=== PATIENT | male | born 1950 | race Caucasian/White ===

== ENCOUNTER 2018-06-02 05:25 | Emergency (ER) | payer BC, OTHER ==
[2018-06-02] MEDS ORDERED: Zithromax 500 MG/ 250 ML NaCl Premix 500 MG/250 ML IVPB IV STA (05:52)
[2018-06-02] MEDS ORDERED: Sodium Chloride 0.9% 1000 ML 1,000 ML IV STA (05:52)
[2018-06-02] MEDS ORDERED: DUONEB 0.5-3 MG/3 ml Neb IH ONE ×3 (05:52→06:56)
[2018-06-02] MEDS ORDERED: solu-MEDROL 125 MG IV ONE (05:52)
[2018-06-02] MEDS ORDERED: ROCEPHIN 1 Gm-D5w 50 ml Bag** 1 G/50 ML IVPB IV STA (05:52)
--- NOTE | 2018-06-02 06:01 | ERPHSYRPT ---
- History of Present Illness Source: patient Exam Limitations: no limitations Patient Subjective Stated Complaint: pt states he has had cough and chest congestion for 2 days. had a episode this morning where he felt short of breath and used albuterol inhaler. sttes much improved after approx 10 m in Triage Nursing Assessment: pt alert and oreinted, asnwers questions approp. pt ambulatory with steady gait noted, skin pink warm and dry. respiraitons nonlabored, insp and exp wheezes noted bilat. occasional moist cough noted. Timing/Duration: day(s) Cough Quality/Degree: moderate, productive cough Possible Cause: occasional episodes Modifying Factors: Improves With: albuterol inhaler Associated Symptoms: cough, shortness of breath, wheezing Hx Tetanus, Diphtheria Vaccination/Date Given: No Hx Influenza Vaccination/Date Given: No Hx Pneumococcal Vaccination/Date Given: No Immunizations Up to Date: No <DINA ZAMORA - Last Filed: 06/02/18 06:56> <ARCHANA REILLY - Last Filed: 06/02/18 07:57> - History of Present Illness Physician History: Pt is a 67 y/o male with a h/o smoking 1ppd. He is treating his chronic SOB with Albuterol MDI only. He began to be SOB on Saturday, and today he was so SOB , that his Albuterol did not solve his wheeze, and pt decided to come to the ED. Pt is very SOB and wheezy, but denies fever and chills. He is coughing with deep breathing. No N/V/D. No abdominal pain. No chest pain or palpitations. (DINA ZAMORA) Allergies/Adverse Reactions: Penicillins Allergy (Verified 06/02/18 05:50) Home Medications: Aspirin 81 mg PO UD 10/16/15 [History] Metoprolol Tartrate 25 mg PO UD 10/16/15 [History] - Review of Systems Constitutional: No Fever, No Chills Eyes: No Symptoms Ears, Nose, & Throat: No Symptoms Respiratory: Cough, Dyspnea, Dyspnea on Exertion (STEVEN), Wheezing Cardiac: No Chest Pain, No Edema, No Syncope Abdominal/Gastrointestinal: No Abdominal Pain, No Nausea, No Vomiting, No Diarrhea Genitourinary Symptoms: No Dysuria Musculoskeletal: No Back Pain, No Neck Pain Skin: No Rash Neurological: No Dizziness, No Focal Weakness, No Sensory Changes <NIKOLAIDINA - Last Filed: 06/02/18 06:56> - Past Medical History Pertinent Past Medical History: Yes Cardiac History: Other Other Medical History: varicose veins, palpitations at times - Past Surgical History Past Surgical History: Yes Neuro Surgical History: No Pertinent History Cardiac: No Pertinent History Respiratory: No Pertinent History Gastrointestinal: Appendectomy, Cholecystectomy Genitourinary: No Pertinent History Musculoskeletal: No Pertinent History Male Surgical History: No Pertinent History - Social History Smoking Status: Current every day smoker How long have you smoked: 45 yrs Exposure to second hand smoke: No Drug Use: none Patient Lives Alone: No <NIKOLAIDINA - Last Filed: 06/02/18 06:56> - Physical Exam General Appearance: mild distress Eye Exam: PERRL/EOMI, eyes nml inspection Ears, Nose, Throat Exam: normal ENT inspection, TMs normal, pharynx normal, moist mucous membranes Neck Exam: normal inspection, non-tender, supple, full range of motion Respiratory Exam: accessory muscle use, prolonged expirations, wheezing Cardiovascular Exam: regular rate/rhythm, normal heart sounds Gastrointestinal/Abdomen Exam: soft, No tenderness Back Exam: normal inspection, No CVA tenderness, No vertebral tenderness Extremity Exam: normal inspection, normal range of motion Neurologic Exam: alert, oriented x 3, cooperative, normal mood/affect, sensation nml, No motor deficits SpO2: 95 <NIKOLAIDINA - Last Filed: 06/02/18 06:56> - Nursing Vital Signs Nursing Vital Signs: Initial Vital Signs Temperature 98.7 F 06/02/18 05:36 Pulse Rate 90 06/02/18 05:36 Respiratory Rate 18 06/02/18 05:36 O2 Sat by Pulse Oximetry 94 L 06/02/18 05:36 Pain Scale Pain Intensity 0 - Course Nursing assessment & vital signs reviewed: Yes <DINA ZAMORA - Last Filed: 06/02/18 06:56> - Course EKG Interpreted by Me: RATE (88 bpm), Sinus Rhythm, Left [place] Deviation, Other ( EKG: Sinus rhythm, 88 bpm, left axis deviation, no acute ST or T wave changes noted.) <ARCHANA REILLY - Last Filed: 06/02/18 07:57> Ordered Tests: Active Orders 24 hr Category Date Time Status 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 06/02/18 05:54 Active EKG-ER Only STAT Care 06/02/18 07:46 Active CHEST 2 VIEWS (PA AND LAT) Stat Exams 06/02/18 06:12 Taken CBC W DIFF Stat Lab 06/02/18 05:52 Completed CMP Stat Lab 06/02/18 05:52 Completed Peak Expiratory Flow Rate ONCE RT 06/02/18 06:31 Active Respiratory Nebulizer STAT RT 06/02/18 05:55 Completed Respiratory Nebulizer STAT RT 06/02/18 06:56 Completed Respiratory Therapy Assessment DAILY RT 06/02/18 06:31 Active Medication Summary Discontinued Medications Generic Name Dose Route Start Last Admin Trade Name Freq PRN Reason Stop Dose Admin Albuterol Sulfate Confirm 06/02/18 07:04 Proventil 2.5 Mg/3 Ml Neb Administered 06/02/18 07:05 Dose 2.5 mg IH .STK-MED ONE Albuterol Sulfate 2.5 mg 06/02/18 07:28 06/02/18 07:15 Proventil 2.5 Mg/3 Ml Neb IH 06/02/18 07:29 2.5 mg STAT ONE Administration Albuterol/Ipratropium 3 ml 06/02/18 05:52 06/02/18 06:27 Duoneb 0.5-3 Mg/3 Ml Neb IH 06/02/18 05:53 3 ml STAT ONE Administration Albuterol/Ipratropium Confirm 06/02/18 06:26 Duoneb 0.5-3 Mg/3 Ml Neb Administered 06/02/18 06:27 Dose 3 ml IH .STK-MED ONE Albuterol/Ipratropium 3 ml 06/02/18 06:56 06/02/18 07:29 Duoneb 0.5-3 Mg/3 Ml Neb IH 06/02/18 06:57 Not Given STAT ONE Ceftriaxone Sodium/Dextrose 1 g in 50 mls @ 100 mls/hr 06/02/18 05:52 06:43 Rocephin 1 Gm-D5w 50 Ml Bag IV 06/02/18 06:21 Infused STAT STA Infusion Sodium Chloride 1,000 mls @ 999 mls/hr 06/02/18 05:52 06/02/18 07:23 Sodium Chloride 0.9% 1000 Ml IV 06/02/18 06:52 Infused .Q1H1M STA Infusion Azithromycin 500 mg in 250 mls @ 250 mls/hr 06/02/18 05:52 06/02/18 06:52 Zithromax 500 Mg/ 250 Ml Nacl Premix IV 06/02/18 06:51 250 ml/hr STAT STA 250 mls/hr Administration Sodium Chloride Confirm 06/02/18 06:08 Sodium Chloride 0.9% 1000 Ml Administered 06/02/18 06:09 Dose 1,000 mls @ ud .ROUTE .STK-MED ONE Ceftriaxone Sodium/Dextrose Confirm 06/02/18 06:09 Rocephin 1 Gm-D5w 50 Ml Bag Administered 06/02/18 06:10 Dose 1 g in 50 mls @ ud IV .STK-MED ONE Azithromycin Confirm 06/02/18 06:49 Zithromax 500 Mg/ 250 Ml Nacl Premix Administered 06/02/18 06:50 Dose 500 mg in 250 mls @ ud IV .STK-MED ONE Methylprednisolone Sodium Succinate 125 mg 06/02/18 05:52 06/02/18 06:14 Solu-Medrol 125 Mg IV 06/02/18 05:53 125 mg STAT ONE Administration Methylprednisolone Sodium Succinate Confirm 06/02/18 06:08 Solu-Medrol 125 Mg Administered 06/02/18 06:09 Dose 125 mg .ROUTE .STK-MED ONE Lab/Rad Data: Laboratory Result Diagrams 06/02/18 05:52 06/02/18 05:52 Laboratory Results 06/02/18 06/02/18 Range/Units 05:52 05:52 WBC 6.3 (4.0-10.5) K/mm3 RBC 5.08 (4.1-5.6) M/mm3 Hgb 15.9 (12.5-18.0) gm/dl Hct 46.9 (42-50) % MCV 92.3 (78-100) fl MCH 31.3 (26-32) pg MCHC 33.9 (32-36) g/dl RDW 13.2 (11.5-14.0) % Plt Count 129 L (150-450) K/mm3 MPV 8.8 (6-9.5) fl Gran % 56.1 (36.0-66.0) % Eos # (Auto) 0.35 (0-0.5) Absolute Lymphs (auto) 1.84 (1.0-4.6) Absolute Monos (auto) 0.55 (0.0-1.3) Lymphocytes % 29.3 (24.0-44.0) % Monocytes % 8.7 (0.0-12.0) % Eosinophils % 5.6 H (0.00-5.0) % Basophils % 0.3 (0.0-0.4) % Absolute Granulocytes 3.53 (1.4-6.9) Basophils # 0.02 (0-0.4) Sodium 138 (137-145) mmol/L Potassium 3.9 (3.5-5.1) mmol/L Chloride 103 (98-107) mmol/L Carbon Dioxide 27 (22-30) mmol/L Anion Gap 11.7 (5-15) MEQ/L BUN 14 (9-20) mg/dL Creatinine 1.07 (0.66-1.25) mg/dL Estimated GFR > 60.0 ML/MIN Glucose 92 (74-106) mg/dL Calcium 9.2 (8.4-10.2) mg/dL Total Bilirubin 0.70 (0.2-1.3) mg/dL AST 16 L (17-59) U/L ALT 12 (0-50) U/L Alkaline Phosphatase 59 (38-126) U/L Serum Total Protein 7.1 (6.3-8.2) g/dL Albumin 3.8 (3.5-5.0) g/dL <DINA ZAMORA - Last Filed: 06/02/18 06:56> - Progress Progress: improved <ARCHANA REILLY - Last Filed: 06/02/18 07:57> - Progress Progress Note: 06/02/18 06:56 Pt was treated with Duo neb, Azithromycin and Rocephin. Solu Medrol 125mg IV was given. Pt did feel improved, but he is still wheezy. Another Duo neb was ordered. Pt is transferred to care of Dr Reilly. (DINA ZAMORA) 06/02/18 07:47 This is a 67-year-old white male initially seen by Dr. Zamora with complaint of chest congestion cough symptoms for 3 days he states he has a history of chronic shortness of breath he has been using an albuterol inhaler he presented to the emergency room with complaints of feeling short of breath and wheezy he denies any fever chills denies any chest pain. He was given DuoNeb treatment albuterol treatment given Solu-Medrol and given Zithromax by Dr. Zamora. He now states he feels much better. Past medical history includes varicose veins, palpitations past surgical history includes appendectomy, cholecystectomy Social history positive tobacco use Physical examination well-developed all nurse white male he is alert oriented 3. Head is atraumatic normocephalic. Eyes PERRLA EOMI fundi are unremarkable. Ears TMs wilde intact bilaterally. Nose is clear throat is clear. Neck is supple full range of motion. Lungs occasional scattered wheeze otherwise clear. Heart regular rate and rhythm without murmur. Abdomen soft nontender nondistended positive bowel sounds. Extremities full range of motion pulses equal and symmetrical 2 over 4. Neuro cranial nerves II through XII are intact DTRs symmetrical 2 over 4 [place] Coma Scale 15. Patient's vitals temperature 98.4 pulse 84 respirations 18 blood pressure 135/ 79 sats 94% on room air. CBC white blood cell 6.3 hemoglobin 15.9 hematocrit or he 6.9 platelets 129. Chemistry sodium 138 potassium 3.9 chloride 103 bicarbonate 27 BUN 14 creatinine 1.07 glucose 92. Chest x-ray no acute disease process noted. EKG sinus rhythm 88 bpm left axis deviation no acute ST or T wave changes. Impression bronchitis, bronchospasm. Plan Will give patient Zithromax tapering dose of prednisone, Patient to use his albuterol inhaler, I have offered the patient a day off work he really doesn't want this appears to be stable at this time and does not appear to be in acute distress, . (ARCHANA REILLY) <DINA ZAMORA - Last Filed: 06/02/18 06:56> - Departure Departure Disposition: Home Critical Care Time: No <ARCHANA REILLY - Last Filed: 06/02/18 07:57> - Departure Clinical Impression: Bronchitis with bronchospasm Condition: Fair Referrals: LISA STODDARD MD [Primary Care Provider] - Additional Instructions: Return home. Continue your albuterol inhaler 2 puffs every 4-6 hours as needed. Plenty of fluids. Tapering dose of prednisone as prescribed. Zithromax as prescribed. Follow-up with your family doctor. Return for acute distress or for severe symptoms. Quit smoking. Prescriptions: Azithromycin 250 mg [Zithromax 250 MG TABLET] 250 mg PO DAILY #4 tablet
[2018-06-02 06:08] LABS: BASOPHIL % 0.3 % (0.0-0.4); Basophil (Absolute #) 0.02 (0-0.4); Eosinophil % 5.6 % (0.00-5.0); Eosinophil (Absolute #) 0.35 (0-0.5); Granulocyte Absolute (ANC) 3.53 (1.4-6.9); Granulocytes % 56.1 % (36.0-66.0); Hematocrit 46.9 % (42-50); Hemoglobin 15.9 gm/dl (12.5-18.0); Lymphocyte (Absolute #) 1.84 (1.0-4.6); Lymphocytes % 29.3 % (24.0-44.0); Mean Cell Volume 92.3 fl (78-100); Mean Corpuscular Hemoglobin 31.3 pg (26-32); Mean Corpuscular Hgb Concent. 33.9 g/dl (32-36); Mean Platelet Volume 8.8 fl (6-9.5); Monocyte (Absolute #) 0.55 (0.0-1.3); Monocytes % 8.7 % (0.0-12.0); Platelet Count 129 K/mm3 (150-450); Red Blood Count 5.08 M/mm3 (4.1-5.6); Red Cell Distribution Width 13.2 % (11.5-14.0); White Blood Count 6.3 K/mm3 (4.0-10.5)
[2018-06-02] MEDS ORDERED: Sodium Chloride 0.9% 1000 ML 1,000 ML ONE (06:08)
[2018-06-02] MEDS ORDERED: solu-MEDROL 125 MG ONE (06:08)
[2018-06-02] MEDS ORDERED: ROCEPHIN 1 Gm-D5w 50 ml Bag** 1 G/50 ML IVPB IV ONE (06:09)
[2018-06-02 06:11] LABS: ALBUMIN 3.8 g/dL (3.5-5.0); ALKALINE PHOSPHATASE 59 U/L (38-126); ANION GAP 11.7 MEQ/L (5-15); BLOOD UREA NITROGEN 14 mg/dL (9-20); CHLORIDE 103 mmol/L (98-107); Calcium 9.2 mg/dL (8.4-10.2); Carbon Dioxide 27 mmol/L (22-30); Creatinine 1 1.07 mg/dL (0.66-1.25); Glucose 92 mg/dL (74-106); Potassium 3.9 mmol/L (3.5-5.1); SGOT/AST 16 U/L (17-59); SGPT/ALT 12 U/L (0-50); SODIUM 138 mmol/L (137-145); Total Protein 7.1 g/dL (6.3-8.2)
[2018-06-02] MEDS ORDERED: Zithromax 500 MG/ 250 ML NaCl Premix 500 MG/250 ML IVPB IV ONE (06:49)
[2018-06-02] MEDS ORDERED: PROVENTIL 2.5 MG/3 ML NEB IH ONE ×2 (07:04→07:28)
[2018-06-02 08:00] VITALS: BP 147/75; PULSE 74; O2SAT 98
--- NOTE | 2018-06-02 08:54 | XRAY ---
Indication: Short of breath and wheezing. Comparison: None PA/lateral chest hyperinflated and clear with incidental calcified granulomas. Heart and mediastinal structures within normal limits. Bony thorax intact with mild degenerative changes and mild scoliosis. Impression: Nonacute hyperinflated chest with chronic features.
== END 2018-06-02 08:05 | disposition home or self-care (01) ==
LOC: ED 05:25
DX: J40 Bronchitis, not specified as acute or chronic (principal); J98.01 Acute bronchospasm
CPT/HCPCS: 36000; 36415; 71046; 80053; 85025; 93005; 93041; 94150; 94640; 96360; 96365; 96368; 96374; 99285; J0456; J0696; J2930; J7609; A9270-GY

== ENCOUNTER 2019-07-26 12:55 | Emergency (ER) | payer BC, MEDICARE ==
[2019-07-26] MEDS ORDERED: Sodium Chloride 0.9% 1000 ML 1,000 ML IV STA (13:36)
[2019-07-26] MEDS ORDERED: ANTIVERT 25 MG PO ONE (13:36)
[2019-07-26 13:46] LABS: Absolute Neutrophil Ct (ANC) 4.05 (1.4-6.9); BASOPHIL % 0.4 % (0.0-0.4); Basophil (Absolute #) 0.03 (0-0.4); Eosinophil % 4.5 % (0.00-5.0); Hematocrit 46.6 % (42-50); Hemoglobin 15.8 gm/dl (12.5-18.0); Lymphocyte (Absolute #) 1.88 (1.0-4.6); Lymphocytes % 27.9 % (24.0-44.0); Mean Cell Volume 94.7 fl (78-100); Mean Corpuscular Hemoglobin 32.1 pg (26-32); Mean Corpuscular Hgb Concent. 33.9 g/dl (32-36); Mean Platelet Volume 9.5 fl (7.5-11.0); Monocyte (Absolute #) 0.47 (0.0-1.3); Neutrophil % 60.2 % (36.0-66.0); Platelet Count 148 K/mm3 (150-450); Red Blood Count 4.92 M/mm3 (4.1-5.6); Red Cell Distribution Width 13.6 % (11.5-14.0); White Blood Count 6.7 K/mm3 (4.0-10.5)
[2019-07-26] MEDS ORDERED: Sodium Chloride 0.9% 1000 ML 1,000 ML ONE (13:47)
[2019-07-26] MEDS ORDERED: ANTIVERT 25 MG ONE (13:47)
[2019-07-26] MEDS ORDERED: Cleocin Phosphate IV 600 MG/4 ML IM ONE (13:47)
--- NOTE | 2019-07-26 13:53 | ERPHSYRPT ---
- History of Present Illness Time Seen by Provider: 07/26/19 13:10 Source: patient Exam Limitations: no limitations Patient Subjective Stated Complaint: pt reports dizziness and periods of weakness intermittently for 2 months. pt reports he woke this morning feeling great and started to ready things for work when he began to feel dizzy. pt denies pain, shortness of breath any numbness or tingling, or trouble with speech or ambulation. pt also reports that at times when he turns his head quickly that he often feels dizzy. Triage Nursing Assessment: pt is aox3, pupils perrl, pt ambulatory pt room with no difficulties, steady gait, pt is clear, appropriate, pt talkative, answers questions apropriately, pt radial pulses strong equal, cap refill < 3 seconds, pt skin pink warm dry. Physician History: 68 Years old male presented in the ER with chief complaint of dizziness and generalized weakness/fatigue going off and on for the last 3 to 6 months. Patient reports whenever he turns his head on the right of the left and then back to normal position he feels dizzy/spinning sensation which lasts for few seconds and improves without any associated chest pain palpitations or shortness of breath. No blurry vision/double vision, numbness tingling or focal weakness. Patient reports history of tinnitus and constant ringing in the ears for very long time and has not noticed any difference recently. Patient reports this kind of spells happening once in few days and has 1 earlier prior to arrival. He is also complaining of generalized weakness and fatigue, feeling drained and having no energy to do his routine activities. Denies any abdominal pain nausea vomiting or diarrhea. Patient denies any history of CAD, diabetes mellitus or any other major comorbid's. Timing/Duration: week(s), intermittent, gradual onset, worse Severity: moderate Modifying Factors: Improves With: movement Associated Symptoms: denies symptoms Allergies/Adverse Reactions: Penicillins Allergy (Verified 07/26/19 13:23) Home Medications: Metoprolol Tartrate 25 mg PO UD 10/16/15 [History] Hx Tetanus, Diphtheria Vaccination/Date Given: Yes Hx Influenza Vaccination/Date Given: Yes Hx Pneumococcal Vaccination/Date Given: Yes Immunizations Up to Date: Yes Travel Risk - International Travel Have you traveled outside of the country in past 3 weeks: No - Coronavirus Screening Close contact with a COVID-19 positive Pt in past 14-21 Days: No - Review of Systems Constitutional: Fatigue, Weakness Eyes: No Symptoms Ears, Nose, & Throat: Tinnitus Respiratory: No Symptoms Cardiac: No Symptoms Abdominal/Gastrointestinal: No Symptoms Genitourinary Symptoms: No Symptoms Musculoskeletal: No Symptoms Skin: No Symptoms Neurological: Dizziness, No Gait Changes, No Sensory Changes, No Speech Changes Psychological: No Symptoms Endocrine: No Symptoms Hematologic/Lymphatic: No Symptoms Immunological/Allergic: No Symptoms - Past Medical History Pertinent Past Medical History: Yes Cardiac History: Other Respiratory History: COPD Other Medical History: varicose veins, palpitations at times - Past Surgical History Past Surgical History: Yes Neuro Surgical History: No Pertinent History Cardiac: No Pertinent History Respiratory: No Pertinent History Gastrointestinal: Appendectomy, Cholecystectomy Genitourinary: No Pertinent History Musculoskeletal: No Pertinent History Male Surgical History: No Pertinent History - Social History Smoking Status: Current every day smoker How long have you smoked: 40 Exposure to second hand smoke: No Drug Use: none Patient Lives Alone: No - Nursing Vital Signs Nursing Vital Signs: Initial Vital Signs Pulse Rate 55 L 07/26/19 13:01 Respiratory Rate 16 07/26/19 13:01 Blood Pressure 142/74 07/26/19 13:01 O2 Sat by Pulse Oximetry 97 07/26/19 13:01 Pain Scale Pain Intensity 0 - Physical Exam General Appearance: no apparent distress Eye Exam: PERRL/EOMI, eyes nml inspection Ears, Nose, Throat Exam: normal ENT inspection, TMs normal, pharynx normal, tonsillar exudate Neck Exam: normal inspection, non-tender, supple, full range of motion Respiratory Exam: normal breath sounds, chest tenderness, lungs clear Cardiovascular Exam: regular rate/rhythm, normal heart sounds, normal peripheral pulses Gastrointestinal/Abdomen Exam: soft Back Exam: normal inspection, normal range of motion, No CVA tenderness Extremity Exam: normal inspection, normal range of motion, pelvis stable Neurologic Exam: alert, oriented x 3, cooperative, 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, normal mood/affect, nml station & gait, sensation nml Skin Exam: normal color SpO2 Interpretation: normal SpO2: 97 O2 Delivery: Room Air - Course Nursing assessment & vital signs reviewed: Yes EKG Interpreted by Me: RATE (58), Sinus Rhythm, NORMAL AXIS, NORMAL INTERVALS, Other (Left anterior fascicular block, early repolarization changes) Ordered Tests: Active Orders 24 hr Category Date Time Status [place] Artist STAT Care 07/26/19 13:36 Active EKG-ER Only STAT Care 07/26/19 13:36 Active IV Insertion STAT Care 07/26/19 13:36 Active Orthostatic Vital Signs STAT Care 07/26/19 13:36 Active CHEST 1 VIEW (PORTABLE) Stat Exams 07/26/19 13:36 Taken HEAD WITHOUT CONTRAST [CT] Stat Exams 07/26/19 13:36 Taken CBC W DIFF Stat Lab 07/26/19 13:45 Completed CMP Stat Lab 07/26/19 13:45 Completed Lactic Acid Stat Lab 07/26/19 13:36 Completed MAGNESIUM Stat Lab 07/26/19 13:45 Completed TROPONIN Q3H Lab 07/26/19 13:45 Completed TROPONIN Q3H Lab 07/26/19 16:45 Ordered TROPONIN Q3H Lab 07/26/19 19:45 Ordered TROPONIN Q3H Lab 07/26/19 22:45 Ordered TROPONIN Q3H Lab 07/27/19 01:45 Ordered UA W/RFX UR CULTURE Stat Lab 07/26/19 13:36 Completed Medication Summary Discontinued Medications Generic Name Dose Route Start Last Admin Trade Name Freq PRN Reason Stop Dose Admin Clindamycin Phosphate 600 mg 07/26/19 13:47 07/26/19 13:55 Cleocin Phosphate Iv 600 Mg/4 Ml IM 07/26/19 13:48 Not Given NOW ONE Sodium Chloride 1,000 mls @ 999 mls/hr 07/26/19 13:36 07/26/19 13:48 Sodium Chloride 0.9% 1000 Ml IV 07/26/19 14:36 999 mls/hr .Q1H1M STA Administration Sodium Chloride Confirm 07/26/19 13:47 Sodium Chloride 0.9% 1000 Ml Administered 07/26/19 13:48 Dose 1,000 mls @ ud .ROUTE .STK-MED ONE Meclizine HCl 25 mg 07/26/19 13:36 07/26/19 13:48 Antivert 25 Mg PO 07/26/19 13:37 25 mg STAT ONE Administration Meclizine HCl Confirm 07/26/19 13:47 Antivert 25 Mg Administered 07/26/19 13:48 Dose 25 mg .ROUTE .STK-MED ONE Lab/Rad Data: Laboratory Result Diagrams 07/26/19 13:45 07/26/19 13:45 Laboratory Results 07/26/19 07/26/19 07/26/19 Range/Units 13:45 13:45 13:45 WBC 6.7 (4.0-10.5) K/mm3 RBC 4.92 (4.1-5.6) M/mm3 Hgb 15.8 (12.5-18.0) gm/dl Hct 46.6 (42-50) % MCV 94.7 (78-100) fl MCH 32.1 H (26-32) pg MCHC 33.9 (32-36) g/dl RDW 13.6 (11.5-14.0) % Plt Count 148 L (150-450) K/mm3 MPV 9.5 (7.5-11.0) fl Gran % 60.2 (36.0-66.0) % Eos # (Auto) 0.30 (0-0.5) Absolute Lymphs (auto) 1.88 (1.0-4.6) Absolute Monos (auto) 0.47 (0.0-1.3) Lymphocytes % 27.9 (24.0-44.0) % Monocytes % 7.0 (0.0-12.0) % Eosinophils % 4.5 (0.00-5.0) % Basophils % 0.4 (0.0-0.4) % Absolute Granulocytes 4.05 (1.4-6.9) Basophils # 0.03 (0-0.4) Sodium 140 (137-145) mmol/L Potassium 4.3 (3.5-5.1) mmol/L Chloride 102 (98-107) mmol/L Carbon Dioxide 29 (22-30) mmol/L Anion Gap 12.3 (5-15) MEQ/L BUN 21 H (9-20) mg/dL Creatinine 1.09 (0.66-1.25) mg/dL Estimated GFR > 60.0 ML/MIN Glucose 100 (74-106) mg/dL Lactic Acid (0.4-2.0) Calcium 9.3 (8.4-10.2) mg/dL Magnesium 2.2 (1.6-2.3) mg/dL Total Bilirubin 0.40 (0.2-1.3) mg/dL AST 19 (17-59) U/L ALT 11 (0-50) U/L Alkaline Phosphatase 60 (38-126) U/L Troponin I < 0.012 (0.000-0.034) ng/mL Serum Total Protein 7.3 (6.3-8.2) g/dL Albumin 4.0 (3.5-5.0) g/dL Urine Color (YELLOW) Urine Appearance (CLEAR) Urine pH (5-6) Ur Specific [place] (1.005-1.025) Urine Protein (Negative) Urine Ketones (NEGATIVE) Urine Blood (0-5) Don/ul Urine Nitrite (NEGATIVE) Urine Bilirubin (NEGATIVE) Urine Urobilinogen (0-1) mg/dL Ur Leukocyte Esterase (NEGATIVE) Urine WBC (Auto) (0-5) /HPF Urine RBC (Auto) (0-2) /HPF U Hyaline Cast (Auto) (0-2) /LPF U Epithel Cells (Auto) (FEW) /HPF Urine Bacteria (Auto) (NEGATIVE) /HPF Urine Mucus (Auto) (NEGATIVE) /HPF Urine Culture Reflexed (NO) Urine Glucose (NEGATIVE) mg/dL 07/26/19 07/26/19 Range/Units 13:36 13:36 WBC (4.0-10.5) K/mm3 RBC (4.1-5.6) M/mm3 Hgb (12.5-18.0) gm/dl Hct (42-50) % MCV (78-100) fl MCH (26-32) pg MCHC (32-36) g/dl RDW (11.5-14.0) % Plt Count (150-450) K/mm3 MPV (7.5-11.0) fl Gran % (36.0-66.0) % Eos # (Auto) (0-0.5) Absolute Lymphs (auto) (1.0-4.6) Absolute Monos (auto) (0.0-1.3) Lymphocytes % (24.0-44.0) % Monocytes % (0.0-12.0) % Eosinophils % (0.00-5.0) % Basophils % (0.0-0.4) % Absolute Granulocytes (1.4-6.9) Basophils # (0-0.4) Sodium (137-145) mmol/L Potassium (3.5-5.1) mmol/L Chloride (98-107) mmol/L Carbon Dioxide (22-30) mmol/L Anion Gap (5-15) MEQ/L BUN (9-20) mg/dL Creatinine (0.66-1.25) mg/dL Estimated GFR ML/MIN Glucose (74-106) mg/dL Lactic Acid 1.3 (0.4-2.0) Calcium (8.4-10.2) mg/dL Magnesium (1.6-2.3) mg/dL Total Bilirubin (0.2-1.3) mg/dL AST (17-59) U/L ALT (0-50) U/L Alkaline Phosphatase (38-126) U/L Troponin I (0.000-0.034) ng/mL Serum Total Protein (6.3-8.2) g/dL Albumin (3.5-5.0) g/dL Urine Color YELLOW (YELLOW) Urine Appearance CLEAR (CLEAR) Urine pH 5.0 (5-6) Ur Specific [place] 1.025 (1.005-1.025) Urine Protein NEGATIVE (Negative) Urine Ketones NEGATIVE (NEGATIVE) Urine Blood NEGATIVE (0-5) Don/ul Urine Nitrite NEGATIVE (NEGATIVE) Urine Bilirubin NEGATIVE (NEGATIVE) Urine Urobilinogen NEGATIVE (0-1) mg/dL Ur Leukocyte Esterase NEGATIVE (NEGATIVE) Urine WBC (Auto) NONE (0-5) /HPF Urine RBC (Auto) NONE (0-2) /HPF U Hyaline Cast (Auto) 0-2 (0-2) /LPF U Epithel Cells (Auto) RARE (FEW) /HPF Urine Bacteria (Auto) NONE (NEGATIVE) /HPF Urine Mucus (Auto) SLIGHT (NEGATIVE) /HPF Urine Culture Reflexed NO (NO) Urine Glucose NEGATIVE (NEGATIVE) mg/dL - Progress Progress: improved, re-examined Progress Note: 07/26/19 68 years old is evaluated for dizziness/vertigo's symptoms along with generalized weakness. Patient has nonfocal neuro exam on multiple evaluations throughout stay in the ER. I have obtained CT head which is negative. Chest x- ray no acute cardiopulmonary findings. Broad work-up otherwise including electrolytes, lactate, troponin is negative. Patient has negative orthostatics. He is given fluid. He remained asymptomatic. I believe patient has BPV, offered meclizine but does not want it. Recommended outpatient follow- up with primary care and ENT for further evaluation. This point I do not think patient needs any further work-up and is stable for discharge. Counseled pt/family regarding: lab results, diagnosis, need for follow-up, rad results, smoking cessation - Departure Departure Disposition: Home Clinical Impression: General weakness BPV (benign positional vertigo) Qualifiers: Laterality: unspecified laterality Qualified Code(s): H81.10 - Benign paroxysmal vertigo, unspecified ear Condition: Stable Critical Care Time: No Referrals: LISA STODDARD MD [Primary Care Provider] - (1-2 days for reevaluation) LENI KAT MD [NON-STAFF PHY W/O PRIVILEGES] - Follow Up with PCP/3 days () Instructions: Vertigo (a Type of Dizziness) (DC) Additional Instructions: Drink plenty of fluids. Follow-up with primary care and ENT for reevaluation' s. Return to ER for any worsening.
[2019-07-26 13:56] LABS: ALKALINE PHOSPHATASE 60 U/L (38-126); ANION GAP 12.3 MEQ/L (5-15); BLOOD UREA NITROGEN 21 mg/dL (9-20); CHLORIDE 102 mmol/L (98-107); Calcium 9.3 mg/dL (8.4-10.2); Carbon Dioxide 29 mmol/L (22-30); Creatinine 1 1.09 mg/dL (0.66-1.25); Glucose 100 mg/dL (74-106); MAGNESIUM 2.2 mg/dL (1.6-2.3); Potassium 4.3 mmol/L (3.5-5.1); SGOT/AST 19 U/L (17-59); SGPT/ALT 11 U/L (0-50); SODIUM 140 mmol/L (137-145); Total Protein 7.3 g/dL (6.3-8.2)
[2019-07-26 15:40] LABS: Appearance CLEAR (CLEAR); Bilirubin NEGATIVE (NEGATIVE); Blood NEGATIVE Ery/ul (0-5); Epithelial Cells RARE /HPF (FEW); Glucose NEGATIVE (NEGATIVE); Hyaline Casts 0-2 /LPF (0-2); Ketones NEGATIVE (NEGATIVE); Leukocyte Esterase NEGATIVE (NEGATIVE); Mucus SLIGHT /HPF (NEGATIVE); Nitrite NEGATIVE (NEGATIVE); Protein,Urine Dip NEGATIVE (Negative); Specific Gravity 1.025 (1.005-1.025); Urobilinogen NEGATIVE mg/dL (0-1)
[2019-07-26 16:15] VITALS: BP 140/73; PULSE 52; O2SAT 99
--- NOTE | 2019-07-26 21:27 | XRAY ---
Indication: Dizziness. Multiple contiguous axial images obtained through the head without contrast. Comparison: None Age-appropriate global atrophy. No acute intracranial hemorrhage, abnormal extra-axial fluid collection, or mass effect. Fourth ventricle is midline without hydrocephalus. Hernandes-white matter differentiation preserved. Bony calvarium intact. 1 cm right maxillary sinus polyp/retention cyst. Remaining visualized paranasal sinuses and mastoid air cells are clear. Impression: Right maxillary sinus polyp/retention cyst. Remaining CT head without contrast exam is negative. Comment: Preliminary interpretation was made by [facility]. No critical discrepancy.
--- NOTE | 2019-07-26 21:29 | XRAY ---
Indication: Dizziness. Comparison: June 02, 2018. Portable chest remains hyperinflated and clear again with incidental calcified granulomas. Heart is not enlarged. Bony thorax intact again with mild degenerative changes. Impression: Continued nonacute hyperinflated chest with chronic features.
== END 2019-07-26 16:20 | disposition home or self-care (01) ==
LOC: ED 12:55
DX: R53.1 Weakness (principal); H81.10 Benign paroxysmal vertigo, unspecified ear; J44.9 Chronic obstructive pulmonary disease, unspecified; Z72.0 Tobacco use
CPT/HCPCS: 36000; 36415; 70450; 71045; 80053; 81001; 83605; 83735; 84484; 85025; 93005; 93041; 96360; 99284; A9270-GY